=== PATIENT | female | born 1960 | race Caucasian/White ===

== ENCOUNTER → 2016-05-16 | Outpatient (CLI) | payer OTHER ==
[~2016-05-16] MED LIST: AMOXICILLIN500 M2 PO; FLONASE ALLERG9.9 ML NS; Flovent 220 M220 MCG INH; GABAPENTIN TAB600 MG PO; HUMALOG100 UNIT/1 SQ; HYDROCODONE BIT1 T11 PO; LANTUS SOLOS100 U/M1 SC; LEVOTHYROXINE0.15 M1 PO; LISINOPRIL10 M1 PO; MELOXICAM15 MG PO; METFORMIN HCL1000 MG PO; NAPROSYN500 MG PO; NATURE'S BLEND F1 MG PO; OMEPRAZOLE D/R20 MG PO; PYRIDIUM200 M1 PO; SIMVASTATIN40 MG PO; VICTOZA 3-PAK6 MG/ML SC; ZITHROMAX250 MG PO
== END | disposition home or self-care (01) ==
LOC: RAD 10:37
DX: M54.42 Lumbago with sciatica, left side (principal); M54.41 Lumbago with sciatica, right side; M25.551 Pain in right hip; M54.5 Low back pain; M79.605 Pain in left leg; M79.604 Pain in right leg

== ENCOUNTER → 2016-10-13 | Outpatient (CLI) | payer OTHER | END | disposition home or self-care (01) | LOC: MRI 07:39 | DX: M47.896 Other spondylosis, lumbar region (principal); M54.41 Lumbago with sciatica, right side; M54.42 Lumbago with sciatica, left side; M46.06 Spinal enthesopathy, lumbar region ==

== ENCOUNTER → 2018-01-14 | Outpatient (CLI) | payer OTHER | END | disposition home or self-care (01) | LOC: RAD 17:39 | DX: J10.1 Influenza due to other identified influenza virus with other respiratory manifestations (principal) ==

== ENCOUNTER 2018-04-29 17:23 | Emergency (ER) | payer OTHER ==
[~2018-04-29] VITALS: Wt 99.8 kg
== END 2018-04-29 19:16 | disposition home or self-care (01) ==
LOC: ED 17:23
DX: S93.401A Sprain of unspecified ligament of right ankle, initial encounter (principal); S90.121A Contusion of right lesser toe(s) without damage to nail, initial encounter; Z88.1 Allergy status to other antibiotic agents; Z88.5 Allergy status to narcotic agent; Z79.899 Other long term (current) drug therapy; Z79.84 Long term (current) use of oral hypoglycemic drugs; Z79.4 Long term (current) use of insulin; W10.9XXA Fall (on) (from) unspecified stairs and steps, initial encounter; Y93.89 Activity, other specified; Y92.098 Other place in other non-institutional residence as the place of occurrence of the external cause; Y99.8 Other external cause status

== ENCOUNTER → 2019-04-01 | Outpatient (CLI) | payer OTHER | END | disposition home or self-care (01) | LOC: MAMMO 15:37 | DX: Z12.31 Encounter for screening mammogram for malignant neoplasm of breast (principal) ==

== ENCOUNTER 2019-12-23 15:48 | Emergency (ER) | payer OTHER | END 2019-12-23 17:31 | disposition home or self-care (01) | LOC: ED 15:48 | DX: S61.211A Laceration without foreign body of left index finger without damage to nail, initial encounter (principal); Z88.8 Allergy status to other drugs, medicaments and biological substances; Z79.899 Other long term (current) drug therapy; Z79.4 Long term (current) use of insulin; X58.XXXA Exposure to other specified factors, initial encounter; Y93.89 Activity, other specified; Y92.89 Other specified places as the place of occurrence of the external cause; Y99.8 Other external cause status ==

== ENCOUNTER → 2022-02-07 | Outpatient (CLI) | payer OTHER ==
[2022-02-07 11:36] LABS: BUN 10 mg/dl (7-24); CHLORIDE 106 mmol/L (98-107); CREATININE 0.57 mg/dL (0.55-1.02); SODIUM 140 mmol/L (136-145)
== END ==
LOC: LAB 10:50
PROVIDERS: ATTEND Family Medicine
DX: J06.9 Acute upper respiratory infection, unspecified (principal)

== ENCOUNTER → 2024-06-20 | Outpatient (CLI) | payer OTHER | END | disposition home or self-care (01) | LOC: RAD 11:20 → LAB 11:20 | PROVIDERS: ATTEND Family Medicine | DX: M16.11 Unilateral primary osteoarthritis, right hip (principal); M25.551 Pain in right hip ==

== ENCOUNTER 2024-07-07 13:51 | Emergency (ER) | payer OTHER ==
[~2024-07-07] VITALS: Ht 167.6 cm; Wt 90.7 kg
== END 2024-07-07 15:09 | disposition home or self-care (01) ==
LOC: ED 13:51
DX: S20.211A Contusion of right front wall of thorax, initial encounter (principal); M25.511 Pain in right shoulder; I10 Essential (primary) hypertension; E11.9 Type 2 diabetes mellitus without complications; Z88.5 Allergy status to narcotic agent; Z88.1 Allergy status to other antibiotic agents; Z98.890 Other specified postprocedural states; W01.0XXA Fall on same level from slipping, tripping and stumbling without subsequent striking against object, initial encounter; Y93.89 Activity, other specified; Y92.096 Garden or yard of other non-institutional residence as the place of occurrence of the external cause; Y99.8 Other external cause status

== ENCOUNTER → 2024-10-16 | Outpatient (CLI) | payer OTHER | END | disposition home or self-care (01) | LOC: US 07:42 | PROVIDERS: ATTEND Family Medicine | DX: I65.23 Occlusion and stenosis of bilateral carotid arteries (principal); H93.13 Tinnitus, bilateral; R42 Dizziness and giddiness ==